=== PATIENT | female | born 1940 | race Caucasian/White ===

== ENCOUNTER 2019-03-13 11:30 | Inpatient (IN) ==
[2019-03-13] MEDS ORDERED: Isovue-370 500 ML BOTTLE IVP ONE (11:53)
[2019-03-13] MEDS ORDERED: methylPREDNISolone 125 MG/2 ML VIAL IVP ONE (12:07)
[2019-03-13] MEDS ORDERED: methylPREDNISolone 125 MG/2 ML VIAL ONE (12:08)
[2019-03-13 12:15] LABS: Basophils % 0.2 %; Eosinophils % 0.4 %; Hematocrit 42.3 % (35.3-44.9); Hemoglobin 13.8 g/dL (11.5-15.4); Immature Granulocytes % 0.4 % (0-4); Lymphocytes # 1.5 K/mcL (0.6-4.6); Mean Corpuscular HGB Conc 32.6 g/dL (31.6-35.5); Mean Corpuscular Hemoglobin 33.3 pg (28.0-33.3); Mean Corpuscular Volume 102.2 fL (83.0-100.0); Mean Platelet Volume 9.8 fL (9.4-12.4); Monocytes # 0.7 K/mcL (0.0-1.3); Monocytes % 8.6 %; Neutrophils # 5.8 K/mcL (1.6-8.9); Platelet Count 167 K/mcL (140-400); Red Blood Count 4.14 M/mcL (3.82-4.97); Segmented Neutrophils % 72.4 %; White Blood Count 8.1 K/mcL (4.3-11.1)
[2019-03-13] MEDS ORDERED: 0.9 % Sodium Chloride 1,000 ML IVC ONE (12:24)
[2019-03-13 12:30] LABS: BUN/Creatinine Ratio 10 (6-26); Blood Urea Nitrogen 10 mg/dL (8-23); Calcium 9.8 mg/dL (8.6-10.3); Carbon Dioxide 26 mEq/L (23-29); Chloride 101 mEq/L (98-107); Glucose 171 mg/dL (70-105); Osmolality,Calculated 289 (280-300); Potassium 4.1 mEq/L (3.5-5.1); Sodium 138 mEq/L (136-145); Troponin I < 0.03 ng/mL (< 0.04); eGFR For African Americans > 60 (> 60); eGFR For Non-African Americans 54 (> 60)
[2019-03-13] MEDS: *HR* FentaNYL (PF) 100 MCG/2 ML VIAL IVP ONE ×2 (12:32→12:58)
[2019-03-13] MEDS ORDERED: Ondansetron 4 MG/2 ML VIAL IVP ONE (12:32)
[2019-03-13] MEDS: Aspirin 81 MG TAB.CHEW PO ONE ×2 (12:32→12:58)
[2019-03-13 12:36] LABS: Prothrombin Time 10.8 Seconds (9.4-12.1)
[2019-03-13] MEDS ORDERED: Nitroglycerin 0.4 MG TAB.SUBL SL PRN (12:36)
[2019-03-13 12:39] LABS: Activated Partial Thrombo Time 31.1 Seconds (26.0-36.0)
[2019-03-13] MEDS ORDERED: Nitroglycerin 0.4 MG TAB.SUBL SL ONE (12:39)
--- NOTE | 2019-03-13 12:46 | Cardiology History & Physical ---
Date of Encounter: 03/13/19 Time of Encounter: 12:45 Assessment and Plan (1) STEMI (ST elevation myocardial infarction) Current Visit: Yes Status: Acute ST elevation leads V2-V4. Persistent chest pain since 0230. Initial troponin negative. Given chest pain and ECG, recommend emergent LHC. R/B/A discussed. Pt agrees to proceed. Will check TTE to evaluate EF. Discussed and reviewed with Dr. Marcelo. The assessment and plan as outlined above was discussed with the patient and/or family members who expressed understanding and agreement. All questions were answered. Qualifiers: Involved coronary artery: unspecified coronary artery Qualified Code(s): I21.3 - ST elevation (STEMI) myocardial infarction of unspecified site History of Present Illness Chief complaint: Chest pain HPI: Ms. Matias is a 78 year old female with PMH HTN, HLD, tobacco abuse, that presented to ED for chest pain, started suddenly at 0230 and has been persistent since then. ECG suggestive of STEMI with elevation V2-V4. No cardiac hx. CTA negative for dissection. Past Med Surg Social Fam HX - Past Medical History Medical history: hypertension, osteoporosis Psychiatric history: no psych history - Past Surgical History Surgical History: orthopedic, other Additional surgical history: neck,ovary,r knee replacement - Social History Smoking Status: Current every day smoker Smokeless Tobacco Status: No Alcohol use: none Drug use: none Medications and Allergies Aspirin [Adult Low Dose Aspirin EC] 12/03/15 [History] Calcium 12/03/15 [History] Cyclobenzaprine 12/03/15 [History] Fish Oil 12/03/15 [History] Ibuprofen [Motrin] 12/03/15 [History] Metoprolol 12/03/15 [History] Nexium 12/03/15 [History] OxyCODONE/APAP 5/325 12/03/15 [History] Phenergan 12/03/15 [History] Vicodin Es 7.5-300 mg Tablet 12/03/15 [History] Zocor 12/03/15 [History] Zofran 12/03/15 [History] Ondansetron ODT [Zofran ODT] 4 mg SL Q6HR PRN #10 tab.rapdis 11/02/17 [Rx] Ibuprofen [Motrin] 800 mg PO Q8HR #30 tablet 09/04/18 [Rx] Azithromycin [Azithromycin 6-Tab Pack] 250 mg PO PER PKG DI #6 tab 09/14/18 [Rx] Benzonatate [Tessalon] 200 mg PO TID PRN #30 capsule 09/14/18 [Rx] GuaiFENesin ER [Mucinex] 1,200 mg PO BID #20 tbbp.12hr 09/14/18 [Rx] Allergy/AdvReac Type Severity Reaction Status Date / Time CONTRAST DYE Allergy Rash Uncoded 09/14/18 13:48 ct Allergy Rash Uncoded 09/14/18 13:48 All Systems Review: The remainder of the systems were reviewed and are negative - Cardiovascular Cardiovascular: as per HPI, chest pain at rest, chest pain with exertion Physical Examination Vital Signs, Last 4 Hours Temp Pulse Resp BP Pulse Ox 03/13/19 12:41 130/57 03/13/19 11:50 98 03/13/19 11:49 127/59 03/13/19 11:37 98.6 F 104 18 126/63 99 Vital Signs Temp Pulse Resp BP Pulse Ox 03/13/19 12:45 92/67 03/13/19 12:41 130/57 03/13/19 11:50 98 03/13/19 11:49 127/59 03/13/19 11:37 98.6 F 104 18 126/63 99 Intake and Output 03/12/19 03/13/19 03/13/19 23:59 07:59 15:59 Other: Weight 56.608 kg Patient Weight 03/13/19 23:59 Weight 56.608 kg General: Conversant, No Apparent Distress HEENT: Atraumatic, Normocephaly, Mucus Membranes Moist Neck: No JVD, Normal carotid pulses Cardiac: Reg Rate and Rhythm, Normal S1 and S2, No Murmur Lungs: Normal Breath Sounds, No Wheeze, Rales, Rhonchi Neuro: Alert and responsive, No focal deficits noted Abdomen: Soft, Non-Tender Skin: No rashes noted on visualized skin Musculoskeletal: No Chest Wall Tenderness Extremities: No Clubbing, No Cyanosis, No Edema, Normal Pulses Results 03/13/19 11:54 03/13/19 11:54 Lab Results 03/13/19 03/13/19 11:54 11:54 WBC 8.1 Hgb 13.8 Hct 42.3 Plt Count 167 Sodium 138 Potassium 4.1 Chloride 101 Carbon Dioxide 26 BUN 10 Creatinine 1.00 Glucose 171 H Calcium 9.8 Troponin I < 0.03 Short CBC 03/13/19 Range/Units 11:54 WBC 8.1 (4.3-11.1) K/mcL Hgb 13.8 (11.5-15.4) g/dL Hct 42.3 (35.3-44.9) % Plt Count 167 (140-400) K/mcL Neutrophils # 5.8 (1.6-8.9) K/mcL BMP 03/13/19 Range/Units 11:54 Sodium 138 (136-145) mEq/L Potassium 4.1 (3.5-5.1) mEq/L Chloride 101 (98-107) mEq/L Carbon Dioxide 26 (23-29) mEq/L BUN 10 (8-23) mg/dL Creatinine 1.00 (0.60-1.20) mg/dL Glucose 171 H (70-105) mg/dL Calcium 9.8 (8.6-10.3) mg/dL Cardiac Enzymes 03/13/19 Range/Units 11:54 Troponin I < 0.03 (< 0.04) ng/mL Impressions Chest X-Ray 03/13/19 11:47 IMPRESSION: 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 D/ / 03/13/2019 12:20:19 Azael Ocasio MD / Rochelle Casillas Interpreting Provider: Azael Ocasio MD Active Medications Nitroglycerin (Nitroglycerin) 0.4 mg SL Q5MIN PRN PRN Reason: Chest Pain Stop: 09/12/19 12:37 Last Admin: 03/13/19 12:41 Dose: 0.4 mg Documented by: - EKG Interpretation EKG results cardiology: personally reviewed
[2019-03-13] MEDS ORDERED: *HR* Heparin 5,000 UNIT/ML VIAL ONE (12:50)
[2019-03-13] MEDS: *HR* Ticagrelor 90 MG TABLET ONE ×2 (12:53→12:54)
[2019-03-13] MEDS ORDERED: *HR* FentaNYL (PF) 100 MCG/2 ML VIAL ONE (13:06)
[2019-03-13] MEDS ORDERED: *HR* Midazolam HCl 2 MG/2 ML VIAL ONE (13:06)
[2019-03-13] MEDS ORDERED: *HR* Heparin 10,000 UNIT/10 ML VIAL ONE (13:20)
[2019-03-13] MEDS ORDERED: 0.9 % Sodium Chloride 1,000 ML ONE (13:20)
[2019-03-13] MEDS ORDERED: ISOVUE-370 200 ML INFUS..BTL ONE ×2 (13:20→13:27)
[2019-03-13] MEDS ORDERED: Nitroglycerin 1,000 MCG/10 ML VIAL IV ONE (13:20)
[2019-03-13] MEDS ORDERED: Heparin 1,000 UNITS/500 mL 500 ML ONE (13:20)
[2019-03-13] MEDS ORDERED: Ondansetron 4 MG/2 ML VIAL ONE (13:33)
--- NOTE | 2019-03-13 13:44 | Pre-Sedation Evaluation ---
Pre-sedation evaluation - Pre-sedation checklist Date of procedure: 03/13/19 Procedure: c emergent Recent Vitals: Last Vital Signs Temp 98.6 F 03/13/19 11:37 Pulse 104 03/13/19 11:37 Resp 18 03/13/19 11:37 BP 92/67 03/13/19 12:45 Pulse Ox 98 03/13/19 11:50 H&P (including ROS) documented in medical record: Yes Dietary Status: unknown Airway Assessment: Patient can open mouth completely, TMJ function normal ASA Classification *see protocol: CLASS V-Morbid complications, operation only hope of survival, [id number] to any of the above to indicate emergent Plan of Care: Pt appropriate candidate for procedure/moderate/conscious sedation, Risks/benefits of procedure/sedation discussed w/ patient/family, If not NPO; Risk of intake outweiged by necessity to perform procedure Cardiac Registry (Cardio Only) - Functional Capacity Functional Capacity: >=4 METS with symptoms - Clincal Frailty Scale Clinical Frailty Scale: Managing Well
--- NOTE | 2019-03-13 13:47 | Event Note ---
Date of Encounter: 03/13/19 Time of Encounter: 13:00 - Cardiology Event Note PCI prelim 95-99% LPDA MATTY x 1 95-99% prox mid RCA MATTY x 2 Mild disease in the LAD EF normal
--- NOTE | 2019-03-13 13:53 | Emergency Department Note ---
Disposition Clinical Impression: Chest pain, Acute electrocardiogram changes Disposition: Admitted As Inpatient Condition: Fair Referrals: Yajaira Up [Primary Care Provider] - Forms: ED Satisfaction Letter Time of Disposition: 13:59 General Adult HPI - General Chief complaint: ED Chest Pain Stated complaint: CP Time Seen by Provider: 03/13/19 11:41 Source: patient Limitations: no limitations - History of Present Illness Pain Scale: 9 - Related Data Home Medications Medication Instructions Recorded Confirmed Aspirin [Adult Low Dose Aspirin EC] 12/03/15 Calcium 12/03/15 Cyclobenzaprine 12/03/15 Fish Oil 12/03/15 Ibuprofen [Motrin] 12/03/15 Metoprolol 12/03/15 Nexium 12/03/15 OxyCODONE/APAP 5/325 12/03/15 Phenergan 12/03/15 Vicodin Es 7.5-300 mg Tablet 12/03/15 Zocor 12/03/15 Zofran 12/03/15 12/03/15 Previous Rx's Medication Instructions Recorded Ondansetron ODT [Zofran ODT] 4 mg SL Q6HR PRN #10 tab.rapdis 11/02/17 Ibuprofen [Motrin] 800 mg PO Q8HR #30 tablet 09/04/18 Azithromycin [Azithromycin 6-Tab 250 mg PO PER PKG DI #6 tab 09/14/18 Pack] Benzonatate [Tessalon] 200 mg PO TID PRN #30 capsule 09/14/18 GuaiFENesin ER [Mucinex] 1,200 mg PO BID #20 tbbp.12hr 09/14/18 Allergies Allergy/AdvReac Type Severity Reaction Status Date / Time CONTRAST DYE Allergy Rash Uncoded 09/14/18 13:48 ct Allergy Rash Uncoded 09/14/18 13:48 Past Medical History - Past Medical History Medical history: Reports: hypertension, osteoporosis Surgical history: Reports: orthopedic, other Psychiatric history: Reports: no psych history 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: 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: no 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 - Social History Smoking Status: Current every day smoker Smokeless Tobacco Status: No Alcohol use: Reports: none Drug use: Reports: none Physical Exam - General Limitations: no limitations General appearance: alert, in no apparent distress Course Vital Signs Temperature 98.6 F 03/13/19 11:37 Pulse Rate 104 03/13/19 11:37 Respiratory Rate 18 03/13/19 11:37 Blood Pressure 126/63 03/13/19 11:37 O2 Sat by Pulse Oximetry 99 03/13/19 11:37 Temperature 98.6 F 03/13/19 11:37 Pulse Rate 104 03/13/19 11:37 Respiratory Rate 18 03/13/19 11:37 Blood Pressure 92/67 03/13/19 12:45 O2 Sat by Pulse Oximetry 98 03/13/19 11:50 Oxygen Delivery Oxygen Delivery Room Air Medical Decision Making - Lab Data Result diagrams: 03/13/19 11:54 03/13/19 11:54 Lab Results 03/13/19 03/13/19 03/13/19 Range/Units 11:54 11:54 11:54 WBC 8.1 (4.3-11.1) K/mcL RBC 4.14 (3.82-4.97) M/mcL Hgb 13.8 (11.5-15.4) g/dL Hct 42.3 (35.3-44.9) % MCV 102.2 H (83.0-100.0) fL MCH 33.3 (28.0-33.3) pg MCHC 32.6 (31.6-35.5) g/dL RDW 13.0 (11.5-14.5) % Plt Count 167 (140-400) K/mcL MPV 9.8 (9.4-12.4) fL Immature Gran % 0.4 (0-4) % Seg Neutrophils % 72.4 % Lymphocytes % 18.0 % Monocytes % 8.6 % Eosinophils % 0.4 % Basophils % 0.2 % Neutrophils # 5.8 (1.6-8.9) K/mcL Lymphocytes # 1.5 (0.6-4.6) K/mcL Monocytes # 0.7 (0.0-1.3) K/mcL Eosinophils # 0.0 (0.0-0.6) K/mcL Basophils # 0.0 (0.0-0.2) K/mcL PT 10.8 (9.4-12.1) Seconds INR 1.0 APTT 31.1 (26.0-36.0) Seconds Sodium (136-145) mEq/L Potassium (3.5-5.1) mEq/L Chloride (98-107) mEq/L Carbon Dioxide (23-29) mEq/L BUN (8-23) mg/dL Creatinine (0.60-1.20) mg/dL Est GFR ( Amer) (> 60) Est GFR (Non-Af Amer) (> 60) BUN/Creatinine Ratio (6-26) Glucose (70-105) mg/dL Calculated Osmolality (280-300) Calcium (8.6-10.3) mg/dL Troponin I (< 0.04) ng/mL B-Natriuretic Peptide 118 H (Less than 100) pg/mL Blood Type Antibody Screen 03/13/19 03/13/19 Range/Units 11:54 12:36 WBC (4.3-11.1) K/mcL RBC (3.82-4.97) M/mcL Hgb (11.5-15.4) g/dL Hct (35.3-44.9) % MCV (83.0-100.0) fL MCH (28.0-33.3) pg MCHC (31.6-35.5) g/dL RDW (11.5-14.5) % Plt Count (140-400) K/mcL MPV (9.4-12.4) fL Immature Gran % (0-4) % Seg Neutrophils % % Lymphocytes % % Monocytes % % Eosinophils % % Basophils % % Neutrophils # (1.6-8.9) K/mcL Lymphocytes # (0.6-4.6) K/mcL Monocytes # (0.0-1.3) K/mcL Eosinophils # (0.0-0.6) K/mcL Basophils # (0.0-0.2) K/mcL PT (9.4-12.1) Seconds INR APTT (26.0-36.0) Seconds Sodium 138 (136-145) mEq/L Potassium 4.1 (3.5-5.1) mEq/L Chloride 101 (98-107) mEq/L Carbon Dioxide 26 (23-29) mEq/L BUN 10 (8-23) mg/dL Creatinine 1.00 (0.60-1.20) mg/dL Est GFR ( Amer) > 60 (> 60) Est GFR (Non-Af Amer) 54 L (> 60) BUN/Creatinine Ratio 10 (6-26) Glucose 171 H (70-105) mg/dL Calculated Osmolality 289 (280-300) Calcium 9.8 (8.6-10.3) mg/dL Troponin I < 0.03 (< 0.04) ng/mL B-Natriuretic Peptide (Less than 100) pg/mL Blood Type A POSITIVE Antibody Screen NEGATIVE Critical Care Time Critical Care Time: Yes Total Critical Care Time: 35 Attestation: Critical care performed: Time is exclusive of separately billable procedures. Time includes: direct patient care, patient reassessment, coordination of patient care, interpretation of data (laboratory data, radiology data, and respiratory data), review of patient's medical records, medical consultation and documentation of patient care. Procedures included in critical care time: Procedures excluded from critical care time: Attestation Statement - Attestation Attestation: I, Willis Corley DO, examined this patient [id number] and my medical decision-making was reviewed with (Dr. Carisa Cannon, Resident Physician. I agree with the documented findings, disposition and treatment plan as described except to the extent set forth below. I personally supervised and was present for the ernandez/critical portions of the procedures completed by the resident documented below. Please see my progress notes for details. 78-year-old female presents emergency room with acute onset of midsternal chest pain that is stabbing in nature that radiates into her back and into her neck. She denies any falls trauma or injury. She does not have any specific history of coronary artery disease. She does not take medicines drinking this time. She is currently denying any shortness of breath, headache, vision changes, nausea, vomiting, diarrhea. No fevers no chills. Patient has not had any other acute issues noted this point. On arrival here, the patient is still describing her discomfort and pain. Repeat EKG was collected and there were some abnormalities in the precordial leads including V2 and V3. No visible rec iprocal changes noted at this time. Patient is still describing the pain. Concern is noted for possible aneurysm versus dissection considering the patient worsening pain nausea lied flat. Immediately IV access was obtained the patient was sent over for CT angiography of the chest abdomen and pelvis to rule out dissection versus aneurysm. Patient was also reevaluated with a repeat EKG 15 minutes after arrival with no acute changes. Labs pending CBC chemistry and troponin will collected at this time. Disposition will be determined workup and treatment course have been evaluated. Conversation will be had with the on- call sharepoint developer further recommendations based on the patient's EKG findings. These are new in comparison old. EKG was reviewed by myself in documented in the resident physician's note. Patient is otherwise stable. Physical exam shows a thin appearing female who is very hard of hearing. Oral phase is patent trachea is midline. Lungs are clear. Heart is regular. Abdomen is soft. No pulsatile masses or lesions. Extremities otherwise normal. She has no signs of ataxia or neurologic deficit. Disposition pending symptom control. See detailed documentation the physical exam, medical intervention, medical decision-making and disposition in the resident physician's note. No critical care by the patient's treatment course at this time. 1235 Evaluation of the EKGs is completed by the sharepoint developer Dr. Marcelo at 1234. He felt that because the patient's described symptoms that it was worth providing her with percutaneous intervention. Patient was alerted as a STEMI alert at that time. The CT angiography of the chest is reviewed by myself there is no visible signs of dissection. Patient will have the remainder of his imaging modality is resulted prior to the admission to the hospital. Patient was taken to the catheter lab with appropriate anticoagulation antiplatelet medications provided prior to leaving our department. Patient otherwise stable. 35 minutes of critical care provider the patient's treatment course. Patient will be admitted after the interventions completed by cardiology.
--- NOTE | 2019-03-13 14:05 | Emergency Department Note ---
Disposition Clinical Impression: Acute electrocardiogram changes Chest pain Qualifiers: Chest pain type: unspecified Qualified Code(s): R07.9 - Chest pain, unspecified Disposition: Admitted As Inpatient Condition: Fair Time of Disposition: 14:10 General Adult HPI - General Chief complaint: ED Chest Pain Stated complaint: CP Time Seen by Provider: 03/13/19 11:41 Source: patient Mode of arrival: EMS Limitations: no limitations Nursing Notes Reviewed: Yes Vital Signs Reviewed: Yes - History of Present Illness HPI Narrative: 78-year-old female with past medical history of high blood pressure, previous WI with one stent multiple years ago, current every day smoker, but states she had chest pain that started at 2:00 this morning it radiates into her right shoulder and up into her neck. Patient is writhing on the bed and states that she is very uncomfortable and wants only for pain. Given patient's pain pattern and smoking history concern for dissection existed, patient was taken emergently to the CT scanner before labs were drawn or back to rule out dissection. Patient stated her pain was sharp. She did not try anything at home for this pain. She is denying abdominal pain, nausea, vomiting, diarrhea, constipation. She endorses shortness of breath and feeling like she is having a hot flash. Pain Scale: 9 - Related Data Home Medications Medication Instructions Recorded Confirmed Aspirin [Adult Low Dose Aspirin EC] 12/03/15 Calcium 12/03/15 Cyclobenzaprine 12/03/15 Fish Oil 12/03/15 Ibuprofen [Motrin] 12/03/15 Metoprolol 12/03/15 Nexium 12/03/15 OxyCODONE/APAP 5/325 12/03/15 Phenergan 12/03/15 Vicodin Es 7.5-300 mg Tablet 12/03/15 Zocor 12/03/15 Zofran 12/03/15 12/03/15 Previous Rx's Medication Instructions Recorded Ondansetron ODT [Zofran ODT] 4 mg SL Q6HR PRN #10 tab.rapdis 11/02/17 Ibuprofen [Motrin] 800 mg PO Q8HR #30 tablet 09/04/18 Azithromycin [Azithromycin 6-Tab 250 mg PO PER PKG DI #6 tab 09/14/18 Pack] Benzonatate [Tessalon] 200 mg PO TID PRN #30 capsule 09/14/18 GuaiFENesin ER [Mucinex] 1,200 mg PO BID #20 tbbp.12hr 09/14/18 Allergies Allergy/AdvReac Type Severity Reaction Status Date / Time CONTRAST DYE Allergy Rash Uncoded 09/14/18 13:48 ct Allergy Rash Uncoded 09/14/18 13:48 Review of Systems: In addition to that documented in the HPI above, the additional ROS was obtained: Constitutional: Denies fevers or chills Reports hot flashes Eyes: Denies vision changes ENMT: Denies sore throat CV: Reports chest pain Resp: Reports SOB GI: Denies vomiting or diarrhea : Denies painful urination MSK: Denies recent trauma Skin: Denies new rashes Neuro: Denies new numbness or tingling or weakness Past Medical History - Past Medical History Attestation: Yes The following information was validated with the patient. Medical history: Reports: hypertension, osteoporosis Surgical history: Reports: orthopedic, other Psychiatric history: Reports: no psych history ANGIO TECHNOLOGIST history: Reports: no ANGIO TECHNOLOGIST history - Social History Smoking Status: Current every day smoker Smokeless Tobacco Status: No Alcohol use: Reports: none Drug use: Reports: none Physical Exam General: Appears to be in pain, cannot sit still, will not lay flat. Well dev eloped, well nourished. Head: atraumatic, normocephalic. ENT: No conjunctival injection, no scleral icterus. PERRLA. EOMI. Oropharynx non- erythematous. mucous membranes dry. Neuro: No focal deficits, no speech deficit, no facial droop, mentating well. Pulm: Lungs CTAB A/P. No wheezes, rales, ronchi. Cardio: Tachycardic. Chest not tender to palpation. Abd: Soft, non-distended. Normoactive bowel sounds. Non-tender to palpation. No guarding. Non rigid. Extremities: Radial pulses 2+ galilea, dorsalis pedis/posterior tibialis 2+ galilea. No LE edema. No cyanosis, clubbing. Skin: warm, dry, intact. No rashes. Psych: Appropriate mood and affect. Answers questions appropriately. Cooperative with exam. - General Limitations: no limitations General appearance: alert, in no apparent distress Course Vital Signs Temperature 98.6 F 03/13/19 11:37 Pulse Rate 104 03/13/19 11:37 Respiratory Rate 18 03/13/19 11:37 Blood Pressure 126/63 03/13/19 11:37 O2 Sat by Pulse Oximetry 99 03/13/19 11:37 Temperature 98.6 F 03/13/19 11:37 Pulse Rate 104 03/13/19 11:37 Respiratory Rate 18 03/13/19 11:37 Blood Pressure 92/67 03/13/19 12:45 O2 Sat by Pulse Oximetry 98 03/13/19 11:50 Oxygen Delivery Oxygen Delivery Room Air Medical Decision Making - MDM Narrative Medical decision making narrative: 78-year-old female that presents for complaints of chest pain that began last night at 2 in the morning. Patient received a CTA of the chest to rule out dissection which was negative for dissection. EKGs were concerning for ST elevation in V2-V3 that was new from previous. EKGs were sent to medical videographer Dr. Marcelo who reviewed them and stated that he would take her to the [facility] given her presentation and EKG changes. These EKGs were reviewed by him at 12:31 PM. Patient was emergently taken to the [facility] where she received a stent as reported in the Lab report to the left PDA and RCA. Pt remained stable while in the department. She was closely monitored until she went to manager lab. Pain was treated with Fentanyl while in the department as well as nitroglycerin. - Medical Records Medical records reviewed: Yes I reviewed the patient's medical records. - Lab Data Lab results reviewed: Yes I reviewed the patient's lab results. Result diagrams: 03/13/19 11:54 03/13/19 11:54 Lab Results 03/13/19 03/13/19 03/13/19 Range/Units 11:54 11:54 11:54 WBC 8.1 (4.3-11.1) K/mcL RBC 4.14 (3.82-4.97) M/mcL Hgb 13.8 (11.5-15.4) g/dL Hct 42.3 (35.3-44.9) % MCV 102.2 H (83.0-100.0) fL MCH 33.3 (28.0-33.3) pg MCHC 32.6 (31.6-35.5) g/dL RDW 13.0 (11.5-14.5) % Plt Count 167 (140-400) K/mcL MPV 9.8 (9.4-12.4) fL Immature Gran % 0.4 (0-4) % Seg Neutrophils % 72.4 % Lymphocytes % 18.0 % Monocytes % 8.6 % Eosinophils % 0.4 % Basophils % 0.2 % Neutrophils # 5.8 (1.6-8.9) K/mcL Lymphocytes # 1.5 (0.6-4.6) K/mcL Monocytes # 0.7 (0.0-1.3) K/mcL Eosinophils # 0.0 (0.0-0.6) K/mcL Basophils # 0.0 (0.0-0.2) K/mcL PT 10.8 (9.4-12.1) Seconds INR 1.0 APTT 31.1 (26.0-36.0) Seconds Sodium (136-145) mEq/L Potassium (3.5-5.1) mEq/L Chloride (98-107) mEq/L Carbon Dioxide (23-29) mEq/L BUN (8-23) mg/dL Creatinine (0.60-1.20) mg/dL Est GFR ( Amer) (> 60) Est GFR (Non-Af Amer) (> 60) BUN/Creatinine Ratio (6-26) Glucose (70-105) mg/dL Calculated Osmolality (280-300) Calcium (8.6-10.3) mg/dL Troponin I (< 0.04) ng/mL B-Natriuretic Peptide 118 H (Less than 100) pg/mL Blood Type Antibody Screen 03/13/19 03/13/19 Range/Units 11:54 12:36 WBC (4.3-11.1) K/mcL RBC (3.82-4.97) M/mcL Hgb (11.5-15.4) g/dL Hct (35.3-44.9) % MCV (83.0-100.0) fL MCH (28.0-33.3) pg MCHC (31.6-35.5) g/dL RDW (11.5-14.5) % Plt Count (140-400) K/mcL MPV (9.4-12.4) fL Immature Gran % (0-4) % Seg Neutrophils % % Lymphocytes % % Monocytes % % Eosinophils % % Basophils % % Neutrophils # (1.6-8.9) K/mcL Lymphocytes # (0.6-4.6) K/mcL Monocytes # (0.0-1.3) K/mcL Eosinophils # (0.0-0.6) K/mcL Basophils # (0.0-0.2) K/mcL PT (9.4-12.1) Seconds INR APTT (26.0-36.0) Seconds Sodium 138 (136-145) mEq/L Potassium 4.1 (3.5-5.1) mEq/L Chloride 101 (98-107) mEq/L Carbon Dioxide 26 (23-29) mEq/L BUN 10 (8-23) mg/dL Creatinine 1.00 (0.60-1.20) mg/dL Est GFR ( Amer) > 60 (> 60) Est GFR (Non-Af Amer) 54 L (> 60) BUN/Creatinine Ratio 10 (6-26) Glucose 171 H (70-105) mg/dL Calculated Osmolality 289 (280-300) Calcium 9.8 (8.6-10.3) mg/dL Troponin I < 0.03 (< 0.04) ng/mL B-Natriuretic Peptide (Less than 100) pg/mL Blood Type A POSITIVE Antibody Screen NEGATIVE - Radiology Data Radiology results reviewed: Yes I reviewed the patient's radiology results. 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 D/ / 03/13/2019 12:20:19 Azael Ocasio MD / Rochelle Casillas Interpreting Provider: Azael Ocasio MD CT Dissection 03/13/19 11:53 IMPRESSION: 1. No evidence of aortic dissection. 2. Coronary atherosclerosis. 3. Trace pericardial effusion. 4. Mild emphysematous changes. 5. Multiple noncalcified pulmonary nodules measure up to 6 mm. Follow-up per guidelines below. 6. A borderline enlarged right hilar lymph node is nonspecific and may be reactive. 7. Diffuse heterogeneous enlargement of the left lobe of the thyroid. Further evaluation with thyroid ultrasound on a nonemergent basis is recommended. 8. Other incidental findings include bladder distension and cholelithiasis. RECOMMENDATIONS: Multiple pulmonary nodules. Most severe: 6.0 mm solid pulmonary nodule. Recommend a non-contrast Chest CT at 3-6 months, then another non-contrast Chest CT at 18-24 months. These guidelines do not apply to patients younger than 35 years, immunocompromised patients, and patients with cancer. Follow up in patients with significant comorbidities as clinically warranted. For lung cancer screening, adhere to Lung-RADS guidelines. Reference: Radiology. 2017; 284(1):228-43. D/ / 03/13/2019 13:07:46 Adiel Frankel MD / Rochelle Casillas Interpreting Provider: Adiel Frankel MD - EKG Data EKG #1 EKG attestation: Yes I reviewed and interpreted this EKG. EKG results narrative: 1140: Heart rate 103, rhythm sinus tachycardia, axis normal. IL 133, QRS 94, QTC 447. One millimeter of ST elevation noted in lead V2, 1.[address] sola vation noted in lead V3. There are no reciprocal ST depressions. These are new changes when compared to her previous EKG dated 03/14/2014. 1156: Heart rate 101, rhythm sinus tachycardia, axis normal. IL 131, QRS 86, QTC 401. ST elevation noted in leads V2 and V3 as described in previous EKG wit hout changes from previous at 1140 today. Attestation Statement - Attestation Attestation: I, Willis Corley DO, examined this patient [id number] and my medical decision-making was reviewed with Dr. Carisa Cannon), Resident Physician. I agree with the documented findings, disposition and treatment plan as described except to the extent set forth below. I personally supervised and was present for the ernandez/critical portions of the procedures completed by the resident documented below. Please see my progress notes for details.
--- NOTE | 2019-03-13 14:13 | Invasive Diagnostic Lab Proc ---
Name: Nieves Matias Date of Study: 03/13/2019 Date: 1940 Ht: 70.1in Medical Record#: [id number] Age: 78 Wt: 124.00lb Gender: Female BSA: 1.7 Order #: [id number] BMI: 17.75 Physicians Procedure Physician: Kb Marcelo MD, [facility] Referring MD: Referring MD: Staff Name Position Time In Antelmo Rangel RN Carpenter Form 01:01 PM Mikaela Gonzalez RT (R) Scrub 01:01 PM Karen Hamilton RN Monitor 01:01 PM Chuckie Flood RN Nurse 01:01 PM Winston Moya RN Nurse 01:01 PM Indications Indication STEMI Procedures Performed Procedure PRQ CARD REVASC RI 1 VSL PRQ CARD MATTY STENT W/ANGIO 1 VSL Pre-Procedure Checklist Informed consent is complete signed and on chart. H&P is on chart. ID band is on and ID verified with patient. Patient NPO for procedure The procedure was described for the patient and questions were answered. Blood Pressure: 92/67 ECG is on chart. Plan of Care Patient will tolerate the procedure without complications. Adequate level of comfort will be maintained. Hemodynamics will remain stable Patient will recover from procedure without complications. Respiratory function will be maintained. Cardiac rhythm will remain stable. Patient temperature will be maintained. Patient and/or family have verbalized understanding of the procedure. Patient Education Chief Complaint/Reason for Test: Cardiac Cath Developmental Category: Geriatric (65+ years) Developmentally Appropriate for Age: Yes Learning Barriers: None Education Needs: Procedure Education Method: Verbal Information Taught: Cardiac Cath Educational Evaluation: Able to repeat information Intravenous Access Time IV Size Location DC'd Fluid/Drip Rate Units RN 20g 1 1/4" Patent On Arrival Rt Antecubital Antelmo Rangel RN 18g 1 1/4" Patent On Arrival Lt Antecubital 0.9NaCl Antelmo Rangel RN Allergies ct Contrast Media, Iodine Related IVP DYE (IODINE) IVP DYE CONTRAST DYE Vital Signs Time BP (mmHg) HR (bpm) O2 Sat. RR (bpm) LOC 01:02 PM / % 5 = Fully awake and oriented or at pre-proc level 01:02 PM / % 5 = Fully awake and oriented or at pre-proc level 01:17 PM / % 5 = Fully awake and oriented or at pre-proc level 01:35 PM 108 / 59 96 92 % 26 01:40 PM 110 / 58 97 87 % 33 01:05 PM 111 / 62 93 97 % 23 01:10 PM 113 / 50 96 94 % 24 01:15 PM 113 / 55 95 96 % 26 01:20 PM 116 / 57 96 98 % 27 01:25 PM 117 / 59 98 95 % 27 01:30 PM 116 / 58 99 93 % 26 Procedural Medications Time Medication Dose Units Method Given By 01:02 PM Oxygen 2 L/min nasal cannula Antelmo Rangel RN 01:06 PM Oxygen 2 L/min nasal cannula Antelmo Rangel RN 01:10 PM Versed 1 mg Intravenous Antelmo Rangel RN 01:10 PM Fentanyl 25 mcg Intravenous Antelmo Rangel RN 01:10 PM Lidocaine 2% 9 ml Subcutaneous Kb Marcelo MD, FACC 01:31 PM Fentanyl 25 mcg Intravenous Winston Moya RN 01:35 PM Zofran 8 mg Intravenous Winston Moya RN 01:20 PM Fentanyl 25 mcg Intravenous Winston Moya RN ASA Classification: Emergent Procedure: ASA score is assumed Freda Score Preprocedure Postprocedure Activity 2- Moves 4 extremities sustained head lift Activity 2- Moves 4 extremities sustained head lift Circulation 2- SBP +/= 20 points of pre-anesthetic level Circulation 2- SBP +/= 20 points of pre-anesthetic level Consciousness 2- Awake and alert oriented x 3 Consciousness 2- Awake and alert oriented x 3 O2 Saturation 2- Able to maintain O2 satruation of 92% on room air O2 Saturation 2- Able to maintain O2 satruation of 92% on room air Respiratory 2- Able to deep breathe and cough well Respiratory 2- Able to deep breathe and cough well Total Score 10 Total Score 10 Contrast Agent: Isovue Diagnostic Contrast: 122 ml Total Contrast: 122 ml Fluoro Dose: 74 mGy Activated Clotting Time Time Seconds to Clot 01:24 PM 400 Procedure Log Time Note Enter By 01:01 PM Pt arrived to laboratory director 2 at 13:01 carmelina 01:01 PM Antelmo Rangel RN Position: Carpenter Form Time in: 13:01 carmelina 01:01 PM Mikaela Gonzalez RT (R) Position: Scrub Time in: 13:01 carmelina 01:01 PM Karen Hamilton RN Position: Monitor Time in: : oparker : PM Chuckie Flood RN Position: Nurse Time in: : oparker : PM Winston Moya RN Position: Nurse Time in: : oparker : PM Patient charges- Angio tray pack, Navilyst 3mm J, Pulse Oximetry and ACIST tubing and transducer oparker : PM Physician arrived 13: oparker : PM Kevon and josep completed oparker : PM Sign in performed according to hospital policy. Informed consent was obtained. oparker 01:02 PM Procedure start 13: oparker : PM Hair removed from procedure site in procedure lab using clippers. Bilateral groin prepped with Chloraprep by Mikaela Gonzalez (Levi), then patient was draped. Skin intact. oparker 01:02 PM Time: 13:02 Patient comfortable and pain free: Yes oparker : PM Time: 13:02LOC: 5 = Fully awake and oriented or at pre-proc level oparker :02 PM Time: 13:02 Oxygen on at 2 L/min per nasal cannula by Antelmo Rangel RN oparyaz : PM CathStat 01:04 PM Vitals capture started with the following parameters, Patient=Adult, Interval=5 min, Initial Afloyzlo=508 mmHg, Deflation Rate=3 mmHg, Cuff placed on Right Arm 01:05 PM HR=93 bpm, EDCU=801/62 mmhg, SpO2=97.0 %, Resp=23 B/min, Comment=nsr 01:06 PM Time: 13:06 Oxygen on at 2 L/min per nasal cannula by Antelmo Rangel RN oparyaz :09 PM Procedure start 13: oparker : PM Pressure channel 1 zeroed. :09 PM Time out was performed according to hospital policy. Conscious sedation and anesthesia was achieved (see medication log with in this report above) oparker :09 PM Clinical Presentation: STEMI or equivalent oparker 01:09 PM Critical cardiac patient with acute RI was brought emergently to the cardiac label paster for immediate coronary angiography and intervention if clinically indicated. oparker 01:10 PM Time: 13:10 Versed 1 mg Intravenous Given by Antelmo Rangel RN oparker 01:10 PM HR=96 bpm, JFIO=707/50 mmhg, SpO2=94.0 %, Resp=24 B/min, Comment=nsr 01:10 PM Time: 13:10 Fentanyl 25 mcg Intravenous Given by Antelmo Rangel RN oparker 01:10 PM Time: 13:10 9 ml Lidocaine 2% to right groin Subcutaneous Given by Kb Marcelo MD, [facility] oparker 01:10 PM Access obtained by percutaneous puncture. 6Fr 10cm Terumo Ericson sheath placed in right Femoral artery. [id number] oparker 01:11 PM 5Fr FL 4 catheter inserted over the wire [facility] oparker 01:11 PM Recorded Pressure: Ao, HR=94, Condition=Condition 1 (Aorta) Ao 98/63/80 01:11 PM LCA angiography performed in multiple views. oparker 01:12 PM 5Fr FL 4 catheter removed intact oparker 01:13 PM PCI Status Emergency oparker 01:13 PM PCI lesion in Left PDA. Pre Stenosis: 99 Pre SANDEEP Flow: 2: Partial Flow/Perfusion (> 1 but < 3) oparker 01:14 PM PCI lesion in Left PDA. oparker 01:14 PM 6Fr CLS 3.5 Runway guide catheter was used to cannulate the PCI vessel successfully. reused? No oparker 01:14 PM Inflation device was opened. oparker 01:14 PM .014 PT Graphix 180cm guide wire across target lesion- successful. reused? No oparker 01:15 PM HR=95 bpm, XCNT=223/55 mmhg, SpO2=96.0 %, Resp=26 B/min, Comment=nsr 01:15 PM 2.5 mm x 8 mm Emerge Monorail balloon across target lesion- successful. reused? No oparker 01:15 PM Recorded Pressure: Ao, HR=97, Condition=Condition 1 (Aorta) Ao 105/63/82 01:16 PM Balloon inflated @ 6 godfrey for 9 seconds oparker 01:17 PM Time: 13:02 Patient comfortable and pain free: Yes oparker 01:17 PM Time: 13:02LOC: 5 = Fully awake and oriented or at pre-proc level oparker 01:19 PM 3.0mm x 16mm Synergy drug-eluting stent across target lesion- unsuccessul Lot #[id number] oparker 01:20 PM HR=96 bpm, VCTK=200/57 mmhg, SpO2=98.0 %, Resp=27 B/min 01:20 PM 2.5 mm x 8 mm Emerge Monorail balloon across target lesion- successful. reused? Yes gdeck 01:20 PM Balloon inflated @ 6 godfrey for 7 seconds gdeck 01:20 PM Balloon inflated @ 14 godfrey for 10 seconds gdeck 01:21 PM Balloon inflated @ 14 godfrey for 12 seconds gdeck 01:21 PM Balloon inflated @ 14 godfrey for 8 seconds gdeck 01:21 PM Balloon catheter removed intact. gdeck 01:22 PM Synergy 3.0x16 across lesion successful. gdeck 01:23 PM Stent deployed @ 14 godfrey for 15 seconds gdeck 01:23 PM Recorded Pressure: Ao, HR=96, Condition=Condition 1 (Aorta) Ao 105/68/85 01:24 PM Stent delivery system removed intact. gdeck 01:24 PM Guide wire removed intact. gdeck 01:24 PM At 13:24 the ACT was >400 seconds. gdeck 01:24 PM Guide catheter removed intact. gdeck 01:25 PM HR=98 bpm, GXQK=451/59 mmhg, SpO2=95.0 %, Resp=27 B/min 01:25 PM 5Fr FR 4 catheter inserted over the wire [facility] gdeck 01:25 PM Recorded Pressure: Ao, HR=98, Condition=Condition 1 (Aorta) Ao 105/74/89 01:26 PM RCA angiography performed in multiple views. gdeck 01:26 PM Coronary Dominance: Co-dominant gdeck 01:27 PM PCI lesion in Proximal RCA. gdeck 01:28 PM 6Fr 3DRC Cordis guide catheter was used to cannulate the PCI vessel successfully. reused? No gdeck 01:29 PM .014 PT Graphix 180cm guide wire across target lesion- successful. reused? Yes gdeck 01:29 PM 2.0 mm x 25 mm Mini Trek Rx balloon across target lesion- successful. reused? No gdeck 01:29 PM Balloon inflated @ 14 godfrey for 12 seconds gdeck 01:30 PM HR=99 bpm, JWOG=367/58 mmhg, SpO2=93.0 %, Resp=26 B/min 01:30 PM Balloon inflated @ 14 godfrey for 10 seconds gdeck 01:30 PM Balloon catheter removed intact. gdeck 01:31 PM 2.25mm x 38mm Synergy drug-eluting stent across target lesion- successful Lot #[id number] gdeck 01:31 PM Time: 13:31 Fentanyl 25 mcg Intravenous Given by Winston Moya RN gdeck 01:32 PM Time: 13:17 Patient comfortable and pain free: Yes gdeck 01:32 PM Time: 13:17LOC: 5 = Fully awake and oriented or at pre-proc level gdeck 01:32 PM Stent deployed @ 15 godfrey for 20 seconds gdeck 01:34 PM 2.25mm x 8mm Synergy drug-eluting stent across target lesion- successful Lot #[id number] gdeck 01:34 PM Stent deployed @ 18 godfrey for 11 seconds gdeck 01:35 PM HR=96 bpm, VXTR=513/59 mmhg, SpO2=92.0 %, Resp=26 B/min 01:35 PM Time: 13:35 Zofran 8 mg Intravenous Given by Winston Moya RN gdeck 01:36 PM 2.75 mm x 20mm NC Trek Rx balloon across target lesion- successful. reused? No gdeck 01:36 PM Balloon inflated @ 16 godfrey for 10 seconds gdeck 01:37 PM Balloon inflated @ 14 godfrey for 18 seconds gdeck 01:38 PM Balloon inflated @ 14 godfrey for 20 seconds gdeck 01:38 PM Balloon catheter removed intact. gdeck 01:38 PM Guide wire removed intact. gdeck 01:38 PM Guide catheter removed intact. gdeck 01:39 PM 5Fr Pigtail catheter inserted over the wire [facility] gdeck 01:39 PM Catheter crossed the aortic valve and was selectively placed in the left ventricle. Pressures recorded on pullback for left heart catheterization. gdeck 01:39 PM Bolus angiogram of left Ventricle complete: 12 ml/sec for a total of 30 mls gdeck 01:39 PM Pressure channel 1 zero failed. 01:39 PM Pressure channel 1 zeroed. 01:39 PM Recorded Pressure: LV, HR=97, Condition=Condition 1 (Left Ventricle) LV 109/-1/13 01:40 PM pigtail removed intact gdeck 01:40 PM Recorded Pressure: LV, Ao, HR=97, Condition=Condition 1 (Left Ventricle) LV 106/15/16, (Aorta) Ao 109/49/71 01:40 PM HR=97 bpm, XHZE=919/58 mmhg, SpO2=87 %, Resp=33 B/min 01:40 PM Bolus angiogram of right Femoral complete: 4 ml/sec for a total of 7 mls gdeck 01:41 PM Procedure completed at 13:41 03/13/2019 gdeck 01:41 PM Did you address SANDEEP flow and Dominance? YesCoronary Dominance: Co-dominant gdeck 01:42 PM Sign out completed: Radiation Dose 107.92 mGy, 73.8 Gy/cm2 Fluoro Time: 6.6 Isovue 370 - 200ml contrast 122 ml given by Kb Marcelo MD, [facility]. Complications: None. The patient was discharged out of the label paster in stable condition. Sedation minutes 31. Cardiac Rehab Consult needed: Yes. Confirmed administered medications: Yes gdeck 01:42 PM Isovue 370 - 200ml,2 Bottle(s) used. gdeck 01:42 PM Sheath left in place to be pulled on floor/holding areaV+Pad gdeck 01:42 PM Estimated Blood Loss: minimal gdeck 01:43 PM Mid/Distal Left Anterior Descending Coronary Artery and diagonal branches with 30% stenosis. If graft is supplying this area, 0 % stenosis gdeck 01:43 PM Circumflex, Obtuse Marginal, Left Posterior Descending, and Left Posterolateral Coronary Arteries with 30 % stenosis. If graft is supplying this area, 0 % stenosis gdeck 01:43 PM Right Coronary, Right Posterior Descending Arteries with Right Posterolateral and Acute Marginal branches with 95 % stenosis. If graft is supplying this area, 0 % stenosis gdeck 01:44 PM Lesion found in Proximal RCA. Pre Stenosis: 95 Pre SANDEEP Flow: gdeck 01:44 PM Lesion found in Mid RCA. Pre Stenosis: 80 Pre SANDEEP Flow: gdeck 01:45 PM Lesion found in Mid LAD. Pre Stenosis: 30 Pre SANDEEP Flow: gdeck 01:45 PM Lesion found in Proximal Circumflex. Pre Stenosis: 30 Pre SANDEEP Flow: gdeck 01:45 PM Post ECG NSR gdeck 01:45 PM Post Blood Pressure 110/58 gdeck 01:46 PM Information taught Cardiac Cath and PCI gdeck 01:46 PM Education needs Procedure, Plan of Care, and Disease Process gdeck 01:46 PM Learning barriers :None gdeck 01:46 PM Education Methods Verbal gdeck 01:46 PM Education evaluation Able to repeat information gdeck 01:46 PM Site status No bleeding/ No Hematoma - Rt Groin as reported by Mikaela Gonzalez RT (R) at 13:46 gdeck 01:46 PM Opsite applied gdeck 01:46 PM Delay to floor No gdeck 01:46 PM Plavix, Effient or Brilinta given Yes gdeck 01:47 PM Patient out of room: 13:47 gdeck 01:47 PM Family placed in consult room. gdeck 01:47 PM Complications: None gdeck 01:53 PM Report given to Tomeka GUZMAN Pt taken to ICU Room #5. 13:52 gdeck Complications Complication None Hemodynamics Pressures Site Systolic/A Wave Diastolic/V Wave Mean AO 98 63 80 AO 105 63 82 AO 105 68 85 AO 105 74 89 LV 109 -1 13 LV 106 15 16 AO 109 49 71 Post Procedure Information Blood Pressure: 110/58 mmHg Rhythm: NSR Post procedural instructions were given Site Checks Time Location Status Staff Sheath In? Note 01:46 PM Rt Groin No bleeding/ No Hematoma Mikaela Gonzalez RT (R) Pulses Time Site Pre-Procedure Post-Procedure Note Bilateral DP & PT 2+ Bilateral radial 2+ Updated by Winston Moya RN on 03/13/2019 2:04:53 PM Karen Hamilton RN electronically signed on 03/13/2019 2:05:27 PM with status of Final
[2019-03-13] MEDS ORDERED: Perflutren Lipid Microsphere 1.3 ML in 0.9 % Sodium Chloride 8.7 ML IVP ONE (19:12)
[2019-03-13] MEDS: *HR* OxyCODONE/APAP 5/325 TABLET PO PRN (19:51)
[2019-03-13] MEDS ORDERED: *HR* Atropine Sulfate 1 MG/10 ML SYRINGE ONE (19:56)
[2019-03-13] MEDS: *HR* Ticagrelor 90 MG TABLET PO SCH (21:00)
[2019-03-14] MEDS: *HR* OxyCODONE/APAP 5/325 TABLET PO PRN ×4 (02:32→21:47)
[2019-03-14 04:46] LABS: Hematocrit 34.1 % (35.3-44.9); Hemoglobin 11.4 g/dL (11.5-15.4); Immature Granulocytes % 0.6 % (0-4); Lymphocytes # 0.8 K/mcL (0.6-4.6); Mean Corpuscular HGB Conc 33.4 g/dL (31.6-35.5); Mean Corpuscular Hemoglobin 33.8 pg (28.0-33.3); Mean Corpuscular Volume 101.2 fL (83.0-100.0); Mean Platelet Volume 10.2 fL (9.4-12.4); Monocytes # 0.6 K/mcL (0.0-1.3); Monocytes % 7.2 %; Neutrophils # 6.7 K/mcL (1.6-8.9); Platelet Count 148 K/mcL (140-400); Red Blood Count 3.37 M/mcL (3.82-4.97); Red Cell Distribution Width 13.2 % (11.5-14.5); Segmented Neutrophils % 82.2 %; White Blood Count 8.1 K/mcL (4.3-11.1)
[2019-03-14 04:54] LABS: BUN/Creatinine Ratio 12 (6-26); Blood Urea Nitrogen 12 mg/dL (8-23); Calcium 8.8 mg/dL (8.6-10.3); Carbon Dioxide 21 mEq/L (23-29); Chloride 110 mEq/L (98-107); Glucose 146 mg/dL (70-105); Osmolality,Calculated 282 (280-300); Potassium 4.1 mEq/L (3.5-5.1); Sodium 135 mEq/L (136-145); eGFR For African Americans > 60 (> 60); eGFR For Non-African Americans 53 (> 60)
[2019-03-14] MEDS: *HR* Ticagrelor 90 MG TABLET PO SCH ×2 (08:21→21:48)
--- NOTE | 2019-03-14 08:31 | Cardiology Progress Note ---
Date of Encounter: 03/14/19 Time of Encounter: 08:30 Assessment and Plan (1) STEMI (ST elevation myocardial infarction) Current Visit: Yes Status: Acute Per Cardiology: Trop negative. S/p LHC: PCI prelim 95-99% LPDA MATTY x 1 95-99% prox mid RCA MATTY x 2 Mild disease in the LAD EF normal On asa, Brilinta, statin, BB. Plan to transfer to floor today. Possible discharge tomorrow. Echo pending. Qualifiers: Involved coronary artery: unspecified coronary artery Qualified Code(s): I21.3 - ST elevation (STEMI) myocardial infarction of unspecified site Discussion w patient/family: The assessment and plan as outlined above was discussed with the patient and/or family members who expressed understanding and agreement. All questions were answered. Thank you for involving us in the care of your patient. Please call with any questions. Subjective Principal diagnosis: STEMI Interval history: Patient denies any chest pain, shortness of breath, palpitations. Denies any concerns from her right groin site. Anxious to go home. Objective Vital Signs, Last 4 Hours Pulse Resp BP Pulse Ox 03/14/19 07:39 65 03/14/19 07:38 70 24 103/60 96 03/14/19 06:00 76 20 91/56 96 03/14/19 05:00 74 20 80/55 96 General: Conversant, No Apparent Distress HEENT: Atraumatic, Normocephaly, Mucus Membranes Moist Neck: No JVD, Normal carotid pulses Cardiac: Reg Rate and Rhythm, Normal S1 and S2, No Murmur Lungs: Normal Breath Sounds, No Wheeze, Rales, Rhonchi Neuro: Alert and responsive, No focal deficits noted Abdomen: Soft, Non-Tender Skin: No rashes noted on visualized skin, Other (Right groin site dry and intact, no hematoma, no ecchymosis, no bleeding, right PT and DP pulses 2+ palpable) Musculoskeletal: No Chest Wall Tenderness Extremities: No Clubbing, No Cyanosis, No Edema, Normal Pulses Results 03/14/19 04:11 03/14/19 04:11 Lab Results Laboratory Tests 03/13/19 03/13/19 03/13/19 11:54 11:54 11:54 Hgb Hct INR 1.0 Creatinine Est GFR (Non-Af Amer) Troponin I < 0.03 B-Natriuretic Peptide 118 H 03/14/19 03/14/19 04:11 04:11 Hgb 11.4 L D Hct 34.1 L INR Creatinine 1.01 Est GFR (Non-Af Amer) 53 L Troponin I B-Natriuretic Peptide ITS Impressions Chest X-Ray 03/13/19 11:47 IMPRESSION: 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 D/ / 03/13/2019 12:20:19 Azael Ocasio MD / Rochelle Casillas Interpreting Provider: Azael Ocasio MD Dissection 03/13/19 11:53 IMPRESSION: 1. No evidence of aortic dissection. 2. Coronary atherosclerosis. 3. Trace pericardial effusion. 4. Mild emphysematous changes. 5. Multiple noncalcified pulmonary nodules measure up to 6 mm. Follow-up per guidelines below. 6. A borderline enlarged right hilar lymph node is nonspecific and may be reactive. 7. Diffuse heterogeneous enlargement of the left lobe of the thyroid. Further evaluation with thyroid ultrasound on a nonemergent basis is recommended. 8. Other incidental findings include bladder distension and cholelithiasis. RECOMMENDATIONS: Multiple pulmonary nodules. Most severe: 6.0 mm solid pulmonary nodule. Recommend a non-contrast Chest CT at 3-6 months, then another non-contrast Chest CT at 18-24 months. These guidelines do not apply to patients younger than 35 years, immunocompromised patients, and patients with cancer. Follow up in patients with significant comorbidities as clinically warranted. For lung cancer screening, adhere to Lung-RADS guidelines. Reference: Radiology. 2017; 284(1):228-43. D/ / 03/13/2019 13:07:46 Adiel Frankel MD / Rochelle Casillas Interpreting Provider: Adiel Frankel MD Active Medications Acetaminophen (Tylenol) 500 mg PO Q6HR PRN PRN Reason: Mild Pain Stop: 09/12/19 13:48 Last Admin: 03/13/19 17:09 Dose: 500 mg Documented by: Aspirin (Aspirin) 81 mg PO DAILY GLO Stop: 09/13/19 09:01 Last Admin: 03/14/19 08:21 Dose: 81 mg Documented by: Atorvastatin Calcium (Lipitor) 40 mg PO HS COUNT INCLUDES THE [facility] Stop: 09/12/19 21:01 Last Admin: 03/13/19 21:00 Dose: 40 mg Documented by: Diphenhydramine HCl (Benadryl) 25 mg PO HS PRN PRN Reason: Insomnia Stop: 09/12/19 20:03 Heparin Sodium (Porcine) (Heparin) 5,000 unit SQ Q12HCO COUNT INCLUDES THE [facility] Stop: 09/13/19 09:01 Last Admin: 03/14/19 08:28 Dose: 5,000 unit Documented by: Hydralazine HCl (Hydralazine) 20 mg IVP Q6HR PRN PRN Reason: Hypertension Stop: 09/12/19 20:01 Metoprolol Tartrate (Lopressor) 12.5 mg PO BID COUNT INCLUDES THE [facility] Stop: 09/12/19 21:01 Last Admin: 03/14/19 08:21 Dose: Not Given Documented by: Nitroglycerin (Nitroglycerin) 0.4 mg SL Q5MIN PRN PRN Reason: Chest Pain Stop: 09/12/19 12:37 Last Admin: 03/13/19 12:41 Dose: 0.4 mg Documented by: Oxycodone/Acetaminophen (Percocet 5/325) 1 each PO Q6HR PRN PRN Reason: Pain Stop: 09/12/19 19:38 Last Admin: 03/14/19 08:21 Dose: 1 each Documented by: Ticagrelor (Brilinta) 90 mg PO BID COUNT INCLUDES THE [facility] Stop: 09/12/19 21:01 Last Admin: 03/14/19 08:21 Dose: 90 mg Documented by: - Imaging and Cardiology Echo: pending Cardiac cath: report reviewed Consult Discharge Plan - Plan Referrals: Yajaira Up [Primary Care Provider] -
[2019-03-14] MEDS ORDERED: Aspirin 81 MG TAB.CHEW PO SCH ×2 (09:00)
[2019-03-14] MEDS ORDERED: *HR* Heparin 5,000 UNIT/ML VIAL SQ SCH (09:00)
--- NOTE | 2019-03-14 12:04 | Electrocardiograph Report ---
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
[2019-03-14] MEDS ORDERED: Perflutren Lipid Microsphere 1.3 ML in 0.9 % Sodium Chloride 8.7 ML IVP ONE (13:22)
[2019-03-14] MEDS ORDERED: Nitroglycerin 0.4 MG TAB.SUBL SL PRN (13:22)
--- NOTE | 2019-03-14 13:35 | Electrocardiograph Report ---
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
[2019-03-14] MEDS: *HR* Heparin 5,000 UNIT/ML VIAL SQ SCH (17:04)
[2019-03-15] MEDS: *HR* OxyCODONE/APAP 5/325 TABLET PO PRN ×2 (04:17→10:25)
[2019-03-15] MEDS: *HR* Heparin 5,000 UNIT/ML VIAL SQ SCH (04:29)
[2019-03-15] MEDS ORDERED: Aspirin 81 MG TAB.CHEW PO SCH (09:00)
[2019-03-15] MEDS: *HR* Ticagrelor 90 MG TABLET PO SCH (09:02)
[2019-03-15 09:44] LABS: Basophils % 0.2 %; Eosinophils # 0.1 K/mcL (0.0-0.6); Eosinophils % 1.4 %; Hematocrit 36.5 % (35.3-44.9); Hemoglobin 11.8 g/dL (11.5-15.4); Immature Granulocytes % 0.3 % (0-4); Lymphocytes # 2.2 K/mcL (0.6-4.6); Mean Corpuscular HGB Conc 32.3 g/dL (31.6-35.5); Mean Corpuscular Hemoglobin 33.6 pg (28.0-33.3); Mean Platelet Volume 9.9 fL (9.4-12.4); Monocytes # 0.3 K/mcL (0.0-1.3); Monocytes % 5.1 %; Neutrophils # 3.6 K/mcL (1.6-8.9); Platelet Count 152 K/mcL (140-400); Red Blood Count 3.51 M/mcL (3.82-4.97); Red Cell Distribution Width 13.5 % (11.5-14.5); White Blood Count 6.3 K/mcL (4.3-11.1)
--- NOTE | 2019-03-15 09:58 | Discharge Summary ---
Orders not resulted at time of discharge: Pending orders 03/13/19 11:54 EKG [ECG 12 lead ECG] [ECG] Stat 03/13/19 12:41 CL Cardiac Catheterization [CL] Routine 03/13/19 13:48 ECG 12 lead ECG [ECG] Routine 03/13/19 13:51 ECG 12 lead ECG [ECG] Stat 03/14/19 06:00 ECG 12 lead ECG [ECG] AM 0600 03/14/19 07:00 ECG 12 lead ECG [ECG] Routine 03/15/19 09:23 BMP [Basic Metabolic Panel] Stat Date of Encounter: 03/15/19 Time of Encounter: 11:00 - Discharge Diagnosis (1) STEMI (ST elevation myocardial infarction) Priority: Primary Status: Acute Comments: s/p PCI to RCA Qualifiers: Involved coronary artery: right coronary artery Qualified Code(s): I21.11 - ST elevation (STEMI) myocardial infarction involving right coronary artery - Hospital Course Hospital course: Ms. 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 EF was normal. She was kept in ICU overnight. Labs, vitals, and telemetry stable. She was stepped down out of ICU yesterday. She has been up ambulating in room without symptoms. No issues with right groin cath site. She is eager for discharge to home today. Post PCI discharge instructions discussed including care of cath site and activity restrictions. Emphasis placed on the importance of uninterrupted DAPT (asa+brilinta) for a minimum of 1 year, patient verbalized understanding. She is being prepped for discharge to home in stable condition. All questions and concerns were addressed. Outpatient follow-up with Dr. Marcelo in 5-7 days, office will contact with appt. Time spent discussing smoking cessation with patient: 3 to 10 minutes - Time Spent with Patient Total time spent providing and/or coordinating discharge services: Less than 30 minutes Specific discharge activities: per post LHC (femoral approach) discharge instructions. No heavy lifting >5 lbs for 1 week. No driving x1 week. Keep cath access site clean and dry until healed. - Discharge Medications Prescriptions: New Ticagrelor [Brilinta] 90 mg PO BID #60 tablet Atorvastatin [Lipitor] 40 mg PO HS #30 tablet Nitroglycerin 0.4 mg SL Q5MIN PRN #30 tab.subl PRN Reason: Chest Pain Continued Esomeprazole Magnesium [Nexium] 40 mg PO DAILY [place]-3 Fatty Acids/Fish Oil [Fish Oil 1,000 mg Softgel] 1 cap PO DAILY Metoprolol [Lopressor] 25 mg PO BID FLUoxetine HCl [Prozac] 10 mg PO DAILY Ipratropium/Albuterol Neb [Duoneb] 3 ml IH Q6HR PRN PRN Reason: Shortness Of Breath Cyclobenzaprine HCl 5 mg PO TID PRN PRN Reason: Muscle Spasm Aspirin [Lo-Dose Aspirin EC] 81 mg PO DAILY #30 tablet. Discontinued Pravastatin Sodium [Pravachol] 40 mg PO DAILY Home Medications: Cyclobenzaprine HCl 5 mg PO TID PRN 03/14/19 [History] Esomeprazole Magnesium [Nexium] 40 mg PO DAILY 03/14/19 [History] FLUoxetine HCl [Prozac] 10 mg PO DAILY 03/14/19 [History] Ipratropium/Albuterol Neb [Duoneb] 3 ml IH Q6HR PRN 03/14/19 [History] Metoprolol [Lopressor] 25 mg PO BID 03/14/19 [History] [place]-3 Fatty Acids/Fish Oil [Fish Oil 1,000 mg Softgel] 1 cap PO DAILY 03/14/19 [History] Aspirin [Lo-Dose Aspirin EC] 81 mg PO DAILY #30 tablet. 03/15/19 [Rx] Atorvastatin [Lipitor] 40 mg PO HS #30 tablet 03/15/19 [Rx] Nitroglycerin 0.4 mg SL Q5MIN PRN #30 tab.subl 03/15/19 [Rx] Ticagrelor [Brilinta] 90 mg PO BID #60 tablet 03/15/19 [Rx] Allergies/Adverse Reactions: Allergy/AdvReac Type Severity Reaction Status Date / Time Iodinated Contrast- Oral and AdvReac Rash Verified 03/14/19 13:12 IV Dye Date of admission: 03/13/19 13:11 Primary care physician: Yajaira Up Consults: 03/13/19 13:48 Consult to Cardiac Rehabilitation-Phase1 [CONS] Routine Comment: Reason for Consult: AMI Call Completed: Yes Consult to Nurse Navigator [CONS] Routine Comment: 03/13/19 13:51 Consult to Cardiac Rehabilitation-Phase1 [CONS] Routine Comment: Reason for Consult: post op PCI Call Completed: Yes Discharging clinician: Griselda Salinas Anticipated date of discharge: 03/15/19 Physical Examination Vital Signs, Last 4 Hours Temp Pulse Resp BP Pulse Ox 03/15/19 08:19 98.3 F 78 16 115/89 94 General: Conversant, No Apparent Distress HEENT: Atraumatic, Normocephaly, Mucus Membranes Moist Cardiac: Reg Rate and Rhythm, Normal S1 and S2 Lungs: Normal Breath Sounds Neuro: Alert and responsive Abdomen: Soft Skin: No rashes noted on visualized skin Musculoskeletal: No Chest Wall Tenderness Extremities: No Edema, Normal Pulses - Patient Status Disposition: Home, Self-Care Condition: Good Functional capacity at discharge: independent ambulation Overall status at discharge: patient is progressing back to baseline - Discharge Instructions Instructions: Aspirin (By mouth), Nitroglycerin, Rapid Release (By mouth), Atorvastatin (By mouth), Ticagrelor (By mouth), Chest Pain (DC) Follow Up With: Yajaira Up [Primary Care Provider] - 03/22/19 9:15 am Kb Marcelo MD [Partnered Physician] - Forms: ED Satisfaction Letter Additional Instructions: RISK FACTORS: STOP SMOKING: If you smoke, STOP. Smoking or tobacco use significantly increases your risk of heart disease because nicotine causes the arteries to narrow or constrict. It also causes fats to stick to the artery. Your chances of having a heart attack are greatly increased if you continue to smoke. For more information, call the education line for smoking cessation 3-590-PTVNCFE EAT A LOW FAT/CHOLESTEROL/SODIUM DIET: This diet may help reduce your chances of having a heart attack. LIFTING: Avoid lifting anything more than 10 pounds for 5-7 days Prior to straining, laughing, sneezing and/or coughing, apply manual pressure directly over insertion site. ACTIVITY: You may walk or climb stairs as tolerated You can resume sexual activity as tolerated In general, you are encouraged to engage in a minimum of 30 minutes or more of moderate intensity physical activity, such as brisk walking, daily or at least 3-4 times weekly BATHING Do not submerge the site into water (bath tub, hot tub, swimming pool) for 1 week. This can be a source for infection into the blood stream. You may shower after 24 hours SITE CARE: After 24 hours, you may remove the dressing and leave the site open to air. Keep the site clean and dry. Clean gently and pat dry. You can expect bruising and tenderness that gradually resolve within a week or two. Return to work as instructed per your physician Resume driving as instructed per physician Keep all scheduled follow up appointments Resume medications as instructed IMPORTANT: If prescribed a Platelet Aggregation Inhibitor such as, Plavix, Brilinta or Effient: Duration of therapy is minimum one year These medications are often used in combination with Aspirin in prevention of future heart attacks Never discontinue unless consult with your [employer] STROKE (CVA) Risk factors for a stroke are: Age, cigarette smoking, diabetes, excessive alcohol consumption, family history, high blood pressure, overweight, physical inactivity, prior stroke, heart attack, diagnosis of carotid artery stenosis or other artery disease. Warning signs: Sudden numbness or weakness of the face, arm or leg; especially on one side of the body, sudden confusion, trouble speaking or understanding, sudden trouble seeing in one or both eyes, sudden trouble walking, dizziness, loss of balance or coordination, sudden severe headache with no cause. Call 911 or go to the Emergency Room. CONGESTIVE HEART FAILURE: If you have been diagnosed with Congestive Heart Failure (CHF) and your symptoms return, make an appointment with your physician Weigh yourself daily. Notify your physician if you have a weight gain of two or more pounds in one day or five or more pounds in one week. If you experience any difficulty breathing, please call 911 BLEEDING: Although the risk of bleeding is minimal, it can happen. If you have any bleeding from the site, apply firm pressure above the puncture site for 10-15 minutes. If the bleeding does not stop, continue manual pressure and call 911 Contact your physician if: You develop a fever greater than 101 degrees Fahrenheit Your site becomes reddened or has any drainage You have an increase in pain or burning at the site or if a large knot forms at the site. If you experience chest pain, shortness of breath, dizziness, or extreme tiredness, stop the activity and rest. Please notify your physicians office if you experience any of these symptoms and they are not relieved by rest please call 911! - Diet and Activity Activity: increase activity as tolerated (per post PCI discharge instructions, please provide written copy) Diet: low fat, low cholesterol, low salt diet
[2019-03-15 10:52] LABS: Calcium 9.1 mg/dL (8.6-10.3); Potassium 3.7 mEq/L (3.5-5.1)
[2019-03-15 11:08] VITALS: BP 114/57
--- NOTE | 2019-03-18 14:18 | Electrocardiograph Report ---
[address] [address] Test Date: 2019-03-13 Pat Name: Nieves Matias Department: EXAM2 Room: 2NE20 Gender: F Night Supervisor: : 1940 Requested By: Willis Corley Order Number: [id number] Reading MD: Abelino Mittal Measurements Intervals [place] Rate: 103 P: 59 CO: 133 QRS: 25 QRSD: 94 T: 26 QT: 341 QTc: 447 Interpretive Statements Sinus tachycardia Probable left atrial enlargement Nonspecific ST-T changes Electronically Signed On 03-18-2019 14:16:30 EDT by Abelino Mittal
== END 2019-03-15 12:06 | disposition home or self-care (01) | DRG 247 ==
LOC: EMEROOARM 11:30 → ICNU 13:00 → 2NENU 03-14 19:03
PROVIDERS: ADMIT Emergency Medicine; ATTEND Emergency Medicine